=== PATIENT | female | born 2000 | race Caucasian/White ===

== ENCOUNTER 2019-03-14 09:36 | Emergency (ER) | payer BC ==
[2019-03-14] MEDS ORDERED: NS 0.9% 1000 ML** 1,000 ML IV ONE (10:05)
[2019-03-14] MEDS ORDERED: Ondansetron INJ* 2 MG/ML VIAL IV ONE (10:05)
--- NOTE | 2019-03-14 10:07 | ED ---
Abdominal Pain/Female - HPI Summary HPI Summary: Pt. is a 18 y.o female who presents to the ER for N/V, blood in stools x 1, dysuria, and chills. Symptoms have been ongoing for a few days and got worse today. Pt. denies past medical hx other than ADHD. Pt. states she thought she had a UTI last week and got an antibx from a friend who has frequent UTIs. She believes antibx was keflex. Pt. also notes she treated herself last week for a yeast infection and sxs resolved. Today she denies vaginal discharge or bleeding. Sxs are moderate in severity. No current modifying factors. - History of Current Complaint Chief Complaint: EDAbdPain Stated Complaint: LOWER LEFT ABD PAIN/CHILLS/FEVER/VOMITNG PER PT Time Seen by Provider: 03/14/19 09:47 Hx Obtained From: Patient Pain Intensity: 7 Allergies/Adverse Reactions: Allergies Allergy/AdvReac Type Severity Reaction Status Date / Time No Known Allergies Allergy Verified 03/14/19 09:45 Home Medications: Home Medications Methylphenidate HCl [Ritalin LA] 10 mg PO DAILY 03/14/19 [History Confirmed ] Mirena IUD 1 implant VAGINAL ONCE 03/14/19 [History Confirmed 03/14/19] PMH/Surg Hx/FS Hx/Imm Hx Previously Healthy: Yes Infectious Disease History: No Infectious Disease History: Denies: Traveled Outside the [place] in Last 30 Days - Family History Known Family History: Positive: Non-Contributory - Social History Occupation: Student Lives: Dormitory/Roommates Alcohol Use: Occasionally Substance Use Type: Reports: None Smoking Status (MU): Never Smoked Tobacco Review of Systems Positive: Fever, Chills Eyes: Negative ENT: Negative Cardiovascular: Negative Respiratory: Negative Positive: Abdominal Pain, Vomiting, Nausea. Negative: Diarrhea Positive: dysuria, flank pain. Negative: discharge Positive: Myalgia Skin: Negative Neurological: Negative All Other Systems Reviewed And Are Negative: Yes Physical Exam Triage Information Reviewed: Yes Vital Signs On Initial Exam: Initial Vitals Temp Pulse Resp BP Pulse Ox 98.5 F 100 16 106/86 98 03/14/19 09:41 03/14/19 09:41 03/14/19 09:41 03/14/19 09:41 03/14/19 09:41 Vital Signs Reviewed: Yes Appearance: Positive: Well-Appearing - Pt. lying in bed in NAD. Nontoxic appearing. Skin: Positive: Warm, Dry Head/Face: Positive: Normal Head/Face Inspection Eyes: Positive: Normal, EOMI, TETO Neck: Positive: Supple Respiratory/Lung Sounds: Positive: Clear to Auscultation, Breath Sounds Present Cardiovascular: Positive: Normal, RRR Abdomen Description: Positive: Other: - Abd. is soft without reproducible pain. Mild bilateral CVA tenderness. Neurological: Positive: Normal, CN Intact II-III Psychiatric: Positive: Affect/Mood Appropriate Diagnostics - Vital Signs Vital Signs Temp Pulse Resp BP Pulse Ox 03/14/19 09:41 98.5 F 100 16 106/86 98 - Laboratory Result Diagrams: 03/14/19 10:06 03/14/19 10:06 Lab Statement: Any lab studies that have been ordered have been reviewed, and results considered in the medical decision making process. Abdominal Pain Fem Course/Dx - Course Course Of Treatment: Pt. presenting with the above symptoms. She is afebrile and well appearing. Pt. has no reproducible abd. pain on exam. She does have mild bilateral CVA tenderness. Given recent UTI suscept pyelonephritis. Pt. was given IV fluids, zofran and toradol. Labs shows elevated WBC and CRP of 13.8 and 137. Negative . U/A contaminated with elevated bacteria, rbcs and wbcs. On re-exam pt. is feeling much better. Will treat for pyelonephritis. Pt. given IV rocephin and will start on PO cipro. Pt. to f.u with [facility] for revaluation. She is tolerating PO fluids in ED without vomiting. Advised increase fluids and rest. Tylenol or motrin for discomfort. Return to ER for increase in pain, fever, vomiting or if concerned. Pt. understands and agrees with plan. - Diagnoses Differential Diagnosis: Positive: Appendicitis, Ectopic , Ovarian Cyst , Pelvic Inflammatory Disease, , Renal Colic, Urinary Tract Infection Provider Diagnoses: Pyelonephritis Discharge - Sign-Out/Discharge Documenting (check all that apply): Patient Departure Patient Received Moderate/Deep Sedation with Procedure: No - Discharge Plan Condition: Improved Disposition: HOME Prescriptions: Ciprofloxacin TAB* [Cipro 500 MG TAB*] 500 mg PO BID #20 tab Ondansetron TAB* [Zofran 4 MG Tab*] 4 mg PO Q6H PRN #12 tab PRN Reason: Nausea Patient Education Materials: Kidney Infection (ED) Forms: *School Release Referrals: [facility] [Outside] Additional Instructions: Schedule a follow up appointment with [facility] in 2-3 days Take medication as directed Increase fluids and rest Tylenol or Motrin for pain and fever as directed Return to ER for worsening pain, vomiting, high fever, or if concerned - Billing Disposition and Condition Condition: IMPROVED Disposition: Home
[2019-03-14 10:12] LABS: ABS Eosinophils 0.1 10^3/ul (0-0.6); ABS Lymphocytes 0.7 10^3/ul (1.0-4.8); ABS Monocytes 1.2 10^3/ul (0-0.8); ABS Neutrophils 11.9 10^3/ul (1.5-7.7); Eosinophil % 0.4 %; Hematocrit 40 % (35-47); Hemoglobin 13.4 g/dL (12.0-16.0); Lymphocyte % 4.8 %; Mean Corpuscular HGB Conc 33 g/dL (31-36); Mean Corpuscular Hemoglobin 30 pg (27-31); Mean Corpuscular Volume 91 fL (80-97); Mean Platelet Volume 8.5 fL (7.4-10.4); Platelet Count 172 10^3/uL (150-450); Red Blood Count 4.41 10^6 /uL (3.70-4.87); Red Cell Distribution Width 13 % (10.5-15); White Blood Count 13.8 10^3/uL (3.5-10.8)
[2019-03-14 10:22] LABS: Urine Appearance Cloudy; Urine Bilirubin Negative (Negative); Urine Blood 3+ (Negative); Urine Color Yellow; Urine Glucose Negative (Negative); Urine Ketones Trace (Negative); Urine Nitrite Negative (Negative); Urine Protein 1+(30 mg/dL) (Negative); Urine Specific Gravity 1.008 (1.010-1.030); Urine Urobilinogen Negative (Negative)
[2019-03-14 10:27] LABS: Urine Bacteria 1+ (Absent); Urine Red Blood Cell 2+(6-10/hpf) (Absent); Urine Squamous Epithelial Cell Present (Absent); Urine White Blood Cell 3+(>20/hpf) (Absent)
[2019-03-14 10:39] LABS: ALT 17 U/L (7-52); AST 17 U/L (13-39); Albumin 4.2 g/dL (3.2-5.2); Albumin/Globulin Ratio 1.4 (1-3); Alkaline Phosphatase 60 U/L (34-104); Anion Gap 8 mmol/L (2-11); BUN/Creatinine Ratio 13.4 (8-20); Blood Urea Nitrogen 11 mg/dL (6-24); C Reactive Protein 137.33 mg/L (<8.01); CO2 Carbon Dioxide 26 mmol/L (22-32); Calcium 9.3 mg/dL (8.6-10.3); Chloride 102 mmol/L (101-111); EGFR African American 107.5 (>60); EGFR Non-African American 88.9 (>60); Glucose 97 mg/dL (70-100); Potassium 3.9 mmol/L (3.5-5.0); Sodium 136 mmol/L (135-145); Total Protein 7.2 g/dL (6.4-8.9)
[2019-03-14 10:45] LABS: HCG Pregnancy < 0.60 mIU/mL
[2019-03-14] MEDS ORDERED: Ketorolac INJ* 30 MG/ML 1 ML VIAL IV PUSH ONE (10:59)
[2019-03-14] MEDS ORDERED: cefTRIAXone(*) 1 GM in NS 0.9% 50 ML* 50 ML IVPB ONE (10:59)
[2019-03-14 12:35] VITALS: BP 97/59
--- NOTE | 2019-03-17 05:44 | PN ---
Progress Note - Progress Note Date of Service: 03/17/19 Note: Urine culture final grew Escherichia coli 100,000 Patient was placed on Cipro prior to discharge This is sensitive to organism Nothing further at this time
== END 2019-03-14 12:34 | disposition home or self-care (01) ==
LOC: ED 09:36
DX: N12 Tubulo-interstitial nephritis, not specified as acute or chronic (principal); Z97.5 Presence of (intrauterine) contraceptive device
CPT/HCPCS: 36415; 80053; 81003; 81015; 84702; 85025; 86140; 87077; 87086; 87186; 96361; 96374; 96375; 99282; J0696; J1885; J2405